=== PATIENT | male | born 1945 | race American Indian/Alaskan Native ===

== ENCOUNTER 2019-04-03 11:13 | Emergency (ER) | payer MEDICARE ==
[2019-04-03] MEDS ORDERED: BENTYL IM ONE (11:28)
[2019-04-03] MEDS ORDERED: ZOFRAN IV ONE (11:28)
[2019-04-03] MEDS ORDERED: NACL 0.9% 1000 ML 1,000 ML IV ONE (11:28)
[2019-04-03] MEDS ORDERED: TORADOL IV ONE (11:28)
--- NOTE | 2019-04-03 11:28 | Event Note ---
ED Screening Note Date of service: 04/03/19 Time: 11:24 ED Screening Note: Reports abdominal pain x 3 weeks with nausea and vomiting. Denies constipation. no rectal bleeding. no vomiting blood . denies alcohol use. denies fever or chills. Denies medical problems Abd:TTP soft. NL BS This initial assessment/diagnostic orders/clinical plan/treatment(s) is/are subject to change based on patients health status, clinical progression and re- assessment by fellow clinical providers in the ED. Further treatment and workup at subsequent clinical providers discretion. Patient/guardian urged not to elope from the ED as their condition may be serious if not clinically assessed and managed. Initial orders include: labs
[2019-04-03 12:14] LABS: Basophils # (Auto) 0.1 K/mm3 (0.0-0.1); Basophils % (Auto) 1.1 % (0.0-1.8); Eosinophils # (Auto) 0.1 K/mm3 (0.0-0.4); Eosinophils % (Auto) 0.8 % (0.0-4.3); Hematocrit 44.6 % (35.5-45.6); Hemoglobin 14.6 gm/dl (11.8-15.2); Lymphocytes # (Auto) 1.8 K/mm3 (1.2-5.4); Lymphocytes % (Auto) 16.6 % (13.4-35.0); Mean Corpuscular HGB Conc 33 % (32-34); Mean Corpuscular Volume 87 fl (84-94); Monocytes # (Auto) 0.6 K/mm3 (0.0-0.8); Monocytes % (Auto) 5.9 % (0.0-7.3); Platelet Count 309 K/mm3 (140-440); Red Blood Count 5.14 M/mm3 (3.65-5.03); Red Cell Distribution Width 14.5 % (13.2-15.2)
[2019-04-03 12:24] LABS: Bacteria,Urine 1+ /HPF (Negative); Bilirubin,Urine NEG (Negative); Blood,Urine NEG (Negative); Color,Urine Yellow (Yellow); Mucus,Urine 3+ /HPF; Protein,Urine <15 mg/dL mg/dL (Negative)
[2019-04-03 12:25] LABS: INR 1.11 (0.87-1.13)
[2019-04-03 12:33] LABS: Amphetamine Screen,Urine PRESUMPTIVE NEGATIVE; Benzodiazepines Screen,Urine PRESUMPTIVE NEGATIVE; Cannabinoid Screen,Urine PRESUMPTIVE NEGATIVE; Cocaine Screen,Urine PRESUMPTIVE NEGATIVE; Methadone Screen,Urine PRESUMPTIVE NEGATIVE; Opiate Screen,Urine PRESUMPTIVE NEGATIVE
[2019-04-03 12:42] LABS: Alanine Aminotransferase 8 units/L (7-56); Albumin 3.9 g/dL (3.9-5); BUN/Creatinine Ratio 18; Blood Urea Nitrogen 20 mg/dL (9-20); Calcium 9.1 mg/dL (8.4-10.2); Hemolysis Index 33
[2019-04-03 12:43] LABS: Bilirubin,Direct < 0.2 mg/dL (0-0.2)
--- NOTE | 2019-04-03 13:45 | Cat Scan Report ---
CT OF THE ABDOMEN AND PELVIS WITH INTRAVENOUS CONTRAST INDICATION / CLINICAL INFORMATION: Lower abdominal pain with nausea and vomiting for 3 days. TECHNIQUE: The patient received 100 cc Omnipaque [address] scans at this location are performed using CT dose reduction for ALARA by means of automated exposure control. COMPARISON: None available. FINDINGS: ABDOMEN: There are multiple simple cysts scattered throughout both lobes of the liver, the largest of which measures approximately 1.9 cm. There are multiple nonspecific low density lesions in the media l aspect of the spleen, the largest of which measures 1.2 cm. There are multiple small simple renal c ysts bilaterally. The gallbladder, bile ducts, pancreas and left adrenal gland are normal. There is a 1 cm benign-appearing right adrenal adenoma readopt There is mild diffuse gastric wall thickening with submucosal edema. I see no evidence of bowel dilat ation or free air. There are moderately severe atherosclerotic calcifications involving the abdominal aorta and its branches without aneurysm. There are advanced changes of emphysema in both lung bases. PELVIS: The distal ureters and urinary bladder are normal. The prostate gland and seminal vesicles ar e not identified. No abnormal mass or fluid collection is seen. No enlarged lymph nodes are identifie d A normal appendix is present and there is no evidence of diverticulitis. I do not identify a hernia . Mild spondylosis is present. There is no evidence of osseous metastatic disease. IMPRESSION: 1. Mild generalized gastric wall thickening/submucosal edema is characteristic of gastritis. 2. Multiple small nonspecific low density lesions in the spleen. Signer Name: Ronni Bernardo MD Signed: 04/03/2019 1:40 PM Workstation Name: [id number]
--- NOTE | 2019-04-03 13:55 | Emergency Department Report ---
ED N/V/D HPI - General Chief complaint: Abdominal Pain Stated complaint: ABD PAIN Time Seen by Provider: 04/03/19 11:22 Source: patient Mode of arrival: Ambulatory Limitations: No Limitations - History of Present Illness Initial comments: Patient is a 73-year-old male with a past medical history of hypertension and coronary disease who is presenting with 3 weeks of abdominal discomfort. Patient states initially was high in the epigastrium but has moved down slightly to be midway between the epigastrium and the umbilicus. Patient s tates pain is worse after he eats. He has been having multiple episodes of nausea and vomiting. Patient states he does not have a history of drinking. Patient denies fever chills cough cold or congestion. Patient states that he called his doctor and was advised to come to the emergency department to be evaluated. Patient states the pain is a cramping sensation is 910 in severity. Patient denies any hematuria or hematochezia. - Related Data Previous Rx's Medication Instructions Recorded Last Taken Type Dicyclomine [Bentyl] 20 mg PO QID #10 tablet 04/03/19 Unknown Rx Ondansetron [Zofran Odt] 4 mg PO Q8HR #20 tab.rapdis 04/03/19 Unknown Rx Pantoprazole [Protonix] 40 mg PO QDAY #30 tablet 04/03/19 Unknown Rx Sulfamethoxazole/Trimethoprim 1 each PO BID #14 tablet 04/03/19 Unknown Rx [Bactrim DS TAB] traMADol [Ultram] 50 mg PO Q6HR PRN #12 tablet 04/03/19 Unknown Rx Allergies Allergy/AdvReac Type Severity Reaction Status Date / Time No Known Allergies Allergy Unverified 04/03/19 11:18 ED Review of Systems ROS: Stated complaint: ABD PAIN Other details as noted in HPI Comment: All other systems reviewed and negative ED Past Medical Hx - Past Medical History Previous Medical History?: Yes Hx Hypertension: Yes Hx Heart Attack/AMI: Yes (stents) Additional medical history: PVD R/T [place], CAD - Surgical History Past Surgical History?: Yes Hx Coronary Stent: Yes - Social History Smoking Status: Current Every Day Smoker Substance Use Type: Prescribed - Medications Home Medications: Home Medications Medication Instructions Recorded Confirmed Last Taken Type Dicyclomine [Bentyl] 20 mg PO QID #10 tablet 04/03/19 Unknown Rx Ondansetron [Zofran Odt] 4 mg PO Q8HR #20 tab.rapdis 04/03/19 Unknown Rx Pantoprazole [Protonix] 40 mg PO QDAY #30 tablet 04/03/19 Unknown Rx Sulfamethoxazole/Trimethoprim 1 each PO BID #14 tablet 04/03/19 Unknown Rx [Bactrim DS TAB] traMADol [Ultram] 50 mg PO Q6HR PRN #12 tablet 04/03/19 Unknown Rx ED Physical Exam - General Limitations: No Limitations General appearance: alert, in no apparent distress - Head Head exam: Present: atraumatic, normocephalic - Eye Eye exam: Present: normal appearance, PERRL, EOMI - ENT ENT exam: Present: mucous membranes moist - Neck Neck exam: Present: normal inspection - Respiratory Respiratory exam: Present: normal lung sounds bilaterally. Absent: respiratory distress, wheezes, rales, rhonchi - Cardiovascular Cardiovascular Exam: Present: regular rate, normal rhythm, normal heart sounds. Absent: systolic murmur, diastolic murmur, rubs, gallop - GI/Abdominal GI/Abdominal exam: Present: soft, tenderness (mid abd ), normal bowel sounds. Absent: distended, guarding, rebound, rigid - Rectal Rectal exam: Present: deferred - Extremities Exam Extremities exam: Present: normal inspection - Back Exam Back exam: Present: normal inspection - Neurological Exam Neurological exam: Present: alert, oriented X3 - Psychiatric Psychiatric exam: Present: normal affect, normal mood - Skin Skin exam: Present: warm, dry, intact, normal color. Absent: rash ED Course Vital Signs 04/03/19 04/03/19 11:18 12:02 Temperature 98.2 F Pulse Rate 103 H Respiratory 18 18 Rate Blood Pressure 162/98 O2 Sat by Pulse 95 Oximetry ED Medical Decision Making - Lab Data Result diagrams: 04/03/19 11:56 04/03/19 11:56 Lab Results 04/03/19 04/03/19 04/03/19 Range/Units 11:37 11:37 11:56 WBC 11.0 (4.5-11.0) K/mm3 RBC 5.14 H (3.65-5.03) M/mm3 Hgb 14.6 (11.8-15.2) gm/dl Hct 44.6 (35.5-45.6) % MCV 87 (84-94) fl MCH 28 (28-32) pg MCHC 33 (32-34) % RDW 14.5 (13.2-15.2) % Plt Count 309 (140-440) K/mm3 Lymph % (Auto) 16.6 (13.4-35.0) % [place] % (Auto) 5.9 (0.0-7.3) % Eos % (Auto) 0.8 (0.0-4.3) % Baso % (Auto) 1.1 (0.0-1.8) % Lymph # 1.8 (1.2-5.4) K/mm3 [place] # 0.6 (0.0-0.8) K/mm3 Eos # 0.1 (0.0-0.4) K/mm3 Baso # 0.1 (0.0-0.1) K/mm3 Seg Neutrophils % 75.6 H (40.0-70.0) % Seg Neutrophils # 8.3 H (1.8-7.7) K/mm3 PT (12.2-14.9) Sec. INR (0.87-1.13) Sodium (137-145) mmol/L Potassium (3.6-5.0) mmol/L Chloride (98-107) mmol/L Carbon Dioxide (22-30) mmol/L Anion Gap mmol/L BUN (9-20) mg/dL Creatinine (0.8-1.5) mg/dL Estimated GFR ml/min BUN/Creatinine Ratio % Glucose (75-100) mg/dL Calcium (8.4-10.2) mg/dL Total Bilirubin (0.1-1.2) mg/dL Direct Bilirubin (0-0.2) mg/dL Indirect Bilirubin mg/dL AST (5-40) units/L ALT (7-56) units/L Alkaline Phosphatase (35-129) units/L Total Protein (6.3-8.2) g/dL Albumin (3.9-5) g/dL Albumin/Globulin Ratio % Lipase (13-60) units/L Urine Color Yellow (Yellow) Urine Turbidity Slightly-cloudy (Clear) Urine pH 5.0 (5.0-7.0) Ur Specific [place] 1.029 (1.003-1.030) Urine Protein <15 mg/dl (Negative) mg/dL Urine Glucose (UA) Neg (Negative) mg/dL Urine Ketones Neg (Negative) mg/dL Urine Blood Neg (Negative) Urine Nitrite Neg (Negative) Urine Bilirubin Neg (Negative) Urine Urobilinogen 2.0 (<2.0) mg/dL Ur Leukocyte Esterase Mod (Negative) Urine WBC (Auto) 14.0 H (0.0-6.0) /HPF Urine RBC (Auto) 2.0 (0.0-6.0) /HPF U Epithel Cells (Auto) 10.0 (0-13.0) /HPF Urine Bacteria (Auto) 1+ (Negative) /HPF Urine Mucus 3+ /HPF Urine Opiates Screen Presumptive negative Urine Methadone Screen Presumptive negative Ur Barbiturates Screen Presumptive negative Ur Phencyclidine Scrn Presumptive negative Ur Amphetamines Screen Presumptive negative U Benzodiazepines Scrn Presumptive negative Urine Cocaine Screen Presumptive negative U Marijuana (THC) Screen Presumptive negative Drugs of Abuse Note Disclamer Plasma/Serum Alcohol (0-0.07) % 04/03/19 04/03/19 04/03/19 Range/Units 11:56 11:56 11:56 WBC (4.5-11.0) K/mm3 RBC (3.65-5.03) M/mm3 Hgb (11.8-15.2) gm/dl Hct (35.5-45.6) % MCV (84-94) fl MCH (28-32) pg MCHC (32-34) % RDW (13.2-15.2) % Plt Count (140-440) K/mm3 Lymph % (Auto) (13.4-35.0) % [place] % (Auto) (0.0-7.3) % Eos % (Auto) (0.0-4.3) % Baso % (Auto) (0.0-1.8) % Lymph # (1.2-5.4) K/mm3 [place] # (0.0-0.8) K/mm3 Eos # (0.0-0.4) K/mm3 Baso # (0.0-0.1) K/mm3 Seg Neutrophils % (40.0-70.0) % Seg Neutrophils # (1.8-7.7) K/mm3 PT 14.2 (12.2-14.9) Sec. INR 1.11 (0.87-1.13) Sodium 143 (137-145) mmol/L Potassium 4.2 (3.6-5.0) mmol/L Chloride 102.4 (98-107) mmol/L Carbon Dioxide 24 (22-30) mmol/L Anion Gap 21 mmol/L BUN 20 (9-20) mg/dL Creatinine 1.1 (0.8-1.5) mg/dL Estimated GFR > 60 ml/min BUN/Creatinine Ratio 18 % Glucose 104 H (75-100) mg/dL Calcium 9.1 (8.4-10.2) mg/dL Total Bilirubin 0.60 (0.1-1.2) mg/dL Direct Bilirubin < 0.2 (0-0.2) mg/dL Indirect Bilirubin 0.4 mg/dL AST 13 (5-40) units/L ALT 8 (7-56) units/L Alkaline Phosphatase 113 (35-129) units/L Total Protein 6.7 (6.3-8.2) g/dL Albumin 3.9 (3.9-5) g/dL Albumin/Globulin Ratio 1.4 % Lipase 15 (13-60) units/L Urine Color (Yellow) Urine Turbidity (Clear) Urine pH (5.0-7.0) Ur Specific [place] (1.003-1.030) Urine Protein (Negative) mg/dL Urine Glucose (UA) (Negative) mg/dL Urine Ketones (Negative) mg/dL Urine Blood (Negative) Urine Nitrite (Negative) Urine Bilirubin (Negative) Urine Urobilinogen (<2.0) mg/dL Ur Leukocyte Esterase (Negative) Urine WBC (Auto) (0.0-6.0) /HPF Urine RBC (Auto) (0.0-6.0) /HPF U Epithel Cells (Auto) (0-13.0) /HPF Urine Bacteria (Auto) (Negative) /HPF Urine Mucus /HPF Urine Opiates Screen Urine Methadone Screen Ur Barbiturates Screen Ur Phencyclidine Scrn Ur Amphetamines Screen U Benzodiazepines Scrn Urine Cocaine Screen U Marijuana (THC) Screen Drugs of Abuse Note Plasma/Serum Alcohol (0-0.07) % 04/03/19 Range/Units 11:56 WBC (4.5-11.0) K/mm3 RBC (3.65-5.03) M/mm3 Hgb (11.8-15.2) gm/dl Hct (35.5-45.6) % MCV (84-94) fl MCH (28-32) pg MCHC (32-34) % RDW (13.2-15.2) % Plt Count (140-440) K/mm3 Lymph % (Auto) (13.4-35.0) % [place] % (Auto) (0.0-7.3) % Eos % (Auto) (0.0-4.3) % Baso % (Auto) (0.0-1.8) % Lymph # (1.2-5.4) K/mm3 [place] # (0.0-0.8) K/mm3 Eos # (0.0-0.4) K/mm3 Baso # (0.0-0.1) K/mm3 Seg Neutrophils % (40.0-70.0) % Seg Neutrophils # (1.8-7.7) K/mm3 PT (12.2-14.9) Sec. INR (0.87-1.13) Sodium (137-145) mmol/L Potassium (3.6-5.0) mmol/L Chloride (98-107) mmol/L Carbon Dioxide (22-30) mmol/L Anion Gap mmol/L BUN (9-20) mg/dL Creatinine (0.8-1.5) mg/dL Estimated GFR ml/min BUN/Creatinine Ratio % Glucose (75-100) mg/dL Calcium (8.4-10.2) mg/dL Total Bilirubin (0.1-1.2) mg/dL Direct Bilirubin (0-0.2) mg/dL Indirect Bilirubin mg/dL AST (5-40) units/L ALT (7-56) units/L Alkaline Phosphatase (35-129) units/L Total Protein (6.3-8.2) g/dL Albumin (3.9-5) g/dL Albumin/Globulin Ratio % Lipase (13-60) units/L Urine Color (Yellow) Urine Turbidity (Clear) Urine pH (5.0-7.0) Ur Specific [place] (1.003-1.030) Urine Protein (Negative) mg/dL Urine Glucose (UA) (Negative) mg/dL Urine Ketones (Negative) mg/dL Urine Blood (Negative) Urine Nitrite (Negative) Urine Bilirubin (Negative) Urine Urobilinogen (<2.0) mg/dL Ur Leukocyte Esterase (Negative) Urine WBC (Auto) (0.0-6.0) /HPF Urine RBC (Auto) (0.0-6.0) /HPF U Epithel Cells (Auto) (0-13.0) /HPF Urine Bacteria (Auto) (Negative) /HPF Urine Mucus /HPF Urine Opiates Screen Urine Methadone Screen Ur Barbiturates Screen Ur Phencyclidine Scrn Ur Amphetamines Screen U Benzodiazepines Scrn Urine Cocaine Screen U Marijuana (THC) Screen Drugs of Abuse Note Plasma/Serum Alcohol < 0.01 (0-0.07) % - Radiology Data [facility] [address] [place] [address] Cat Scan Report Signed Patient: Rocio DUDLEY MR#: [id number] : 1945 Acct:[id number] Age/Sex: 73 / M ADM Date: 04/03/19 Loc: ED Attending Dr: Ordering Physician: HAILEY CASTRO MD Date of Service: 04/03/19 Procedure(s): CT abdomen pelvis w con Accession Number(s): [id number] cc: HAILEY CASTRO MD CT OF THE ABDOMEN AND PELVIS WITH INTRAVENOUS CONTRAST INDICATION / CLINICAL INFORMATION: Lower abdominal pain with nausea and vomiting for 3 days. TECHNIQUE: The patient received 100 cc Omnipaque [address] scans at this location are performed using CT dose reduction for ALARA by means of automated exposure control. COMPARISON: None available. FINDINGS: ABDOMEN: There are multiple simple cysts scattered throughout both lobes of the liver, the largest of which measures approximately 1.9 cm. There are multiple nonspecific low density lesions in the medial aspect of the spleen, the largest of which measures 1.2 cm. There are multiple small simple renal cysts bilaterally. The gallbladder, bile ducts, pancreas and left adrenal gland are normal. There is a 1 cm benign-appearing right adrenal adenoma readopt There is mild diffuse gastric wall thickening with submucosal edema. I see no evidence of bowel dilatation or free air. There are moderately severe atherosclerotic calcifications involving the abdominal aorta and its branches without aneurysm. There are advanced changes of emphysema in both lung bases. PELVIS: The distal ureters and urinary bladder are normal. The prostate gland and seminal vesicles are not identified. No abnormal mass or fluid collection is seen. No enlarged lymph nodes are identified A normal appendix is present and there is no evidence of diverticulitis. I do not identify a hernia. Mild spondylosis is present. There is no evidence of osseous metastatic disease. IMPRESSION: 1. Mild generalized gastric wall thickening/submucosal edema is characteristic of gastritis. 2. Multiple small nonspecific low density lesions in the spleen. Signer Name: Ronni Bernardo MD Signed: 04/03/2019 1:40 PM Workstation Name: [id number] Transcribed By: RT Dictated By: Ronni Bernardo MD Electronically Authenticated By: Ronni Bernardo MD Signed Date/Time: 04/03/19 1340 - Medical Decision Making Patient was given IV hydration and medications for symptomatic relief and is feeling improved. Patient's CT is consistent with a gastritis which does correlate well with his complaints. Patient will be started on Protonix and given antiemetics will follow with GI. Patient states he has no dysuria or urinary frequency however the patient does have positive leuk esterase as well as bacteria in the urine. Patient be treated for cystitis/prostatitis. Patient be discharged home at this time. Critical care attestation.: If time is entered above; I have spent that time in minutes in the direct care of this critically ill patient, excluding procedure time. ED Disposition Clinical Impression: Pyuria Gastritis Qualifiers: Gastritis type: unspecified gastritis Chronicity: acute Gastritis bleeding: without bleeding Qualified Code(s): K29.00 - Acute gastritis without bleeding Disposition: DC-01 TO HOME OR SELFCARE Is pt being admited?: No Does the pt Need Aspirin: No Condition: Stable Instructions: Urinary Tract Infection in Men (ED), Gastritis (ED) Additional Instructions: Please follow up with the GI clinic at the DC or the GI doctor that has been given to you on your paperwork Referrals: [facility] [Other] - 3-5 Days [facility] [Provider Group] - 3-5 Days Time of Disposition: 14:02
[2019-04-03 14:10] VITALS: BP 131/80
== END 2019-04-03 14:12 | disposition home or self-care (01) ==
LOC: ED 11:13
DX: K29.70 Gastritis, unspecified, without bleeding (principal); R82.81 Pyuria; I10 Essential (primary) hypertension; I25.2 Old myocardial infarction; I25.10 Atherosclerotic heart disease of native coronary artery without angina pectoris; F17.200 Nicotine dependence, unspecified, uncomplicated; Z95.5 Presence of coronary angioplasty implant and graft; Z79.899 Other long term (current) drug therapy
CPT/HCPCS: 36415; 74177; 80048; 80076; 80307; 81001; 83690; 85025; 85610; 86850; 86900; 86901; 87086; 96361; 96372; 96374; 96375; 99284; J0500; J1885; J2405; J7030; Q9967; 80320; G0480

== ENCOUNTER 2020-06-27 10:35 | Emergency (ER) | payer MEDICARE ==
[2020-06-27] MEDS ORDERED: LIDOCAINE VISCOUS 2% 15 ML ORAL LIQD PO ONE (10:56)
[2020-06-27] MEDS ORDERED: ALUM-MAG HYDROXIDE-SIMETHICONE 200-200-20MG/5ML ORAL LIQD 30 ML PO ONE (10:57)
--- NOTE | 2020-06-27 11:01 | Emergency Department Report ---
HPI - General Chief Complaint: Abdominal Pain Time Seen by Provider: 06/27/20 10:50 - HPI HPI: This is a 74-year-old -Al[place]ian male who presents to the emergency department with a complaint of upper abdominal pain that has been going on intermittently for the past month. Patient denies any current chest pain but says that sometimes the pain will radiate into the lower mid chest. He denies any fever, back pain, nausea, vomiting, diarrhea, constipation, dysuria. The pain worsens when the patient eats any food. It improves immediately after drinking milk. No recent travel or sick contacts at home. The patient follows with the [facility] for primary care. He has a past medical history of hypertension, coronary artery disease with a cardiac stent, PVD, and previous exposure to agent orange. The patient is a tobacco smoker but denies any illicit drug use. ED Past Medical Hx - Past Medical History Previous Medical History?: Yes Hx Hypertension: Yes Hx Heart Attack/AMI: Yes (stents) Additional medical history: PVD R/T [place], CAD - Surgical History Past Surgical History?: Yes Hx Coronary Stent: Yes - Social History Smoking Status: Current Every Day Smoker Substance Use Type: Prescribed - Medications Home Medications: Home Medications Medication Instructions Recorded Confirmed Last Taken Type Dicyclomine [Bentyl] 20 mg PO QID #10 tablet 04/03/19 Unknown Rx Ondansetron [Zofran Odt] 4 mg PO Q8HR #20 tab.rapdis 04/03/19 Unknown Rx Sulfamethoxazole/Trimethoprim 1 each PO BID #14 tablet 04/03/19 Unknown Rx [Bactrim DS TAB] traMADoL [Ultram] 50 mg PO Q6HR PRN #12 tablet 04/03/19 Unknown Rx Pantoprazole [Protonix TAB] 40 mg PO QDAY #30 tablet 06/27/20 Unknown Rx ED Review of Systems ROS: Stated complaint: STOMACCH IRRITATION/DISCOMFORT Other details as noted in HPI Comment: All other systems reviewed and negative Constitutional: denies: chills, fever Eyes: denies: eye pain, vision change ENT: denies: ear pain, throat pain Respiratory: denies: cough, shortness of breath Cardiovascular: denies: palpitations, edema Gastrointestinal: abdominal pain. denies: nausea, vomiting, diarrhea, constipation Genitourinary: denies: dysuria, discharge Musculoskeletal: denies: back pain, arthralgia Skin: denies: rash, lesions Neurological: denies: headache, weakness Physical Exam - Physical Exam Vital Signs: Vital Signs 06/27/20 10:46 Temperature 97.9 F Pulse Rate 98 H Respiratory 18 Rate Blood Pressure 123/91 [Right] O2 Sat by Pulse 97 Oximetry Physical Exam: GENERAL: The patient is well-developed well-nourished. HENT: Normocephalic. Atraumatic. Patient has moist mucous membranes. EYES: Extraocular motions are intact. NECK: Supple. Trachea is midline. CHEST/LUNGS: Clear to auscultation. There is no respiratory distress noted. HEART/CARDIOVASCULAR: Regular. There is no tachycardia. There is no murmur. ABDOMEN: Abdomen is soft. Upper abdominal reproducible tenderness to palpation. No guarding. No rebound tenderness. Patient has normal bowel sounds. There is no abdominal distention. SKIN: Skin is warm and dry. NEURO: The patient is awake, alert, and oriented. The patient is cooperative. The patient has no focal neurologic deficits. Normal speech. MUSCULOSKELETAL: There is no tenderness or deformity. There is no limitation range of motion. ED Course Vital Signs 06/27/20 10:46 Temperature 97.9 F Pulse Rate 98 H Respiratory 18 Rate Blood Pressure 123/91 [Right] O2 Sat by Pulse 97 Oximetry ED Medical Decision Making - Lab Data Result diagrams: 06/27/20 11:36 06/27/20 11:36 Lab Results 06/27/20 06/27/20 Range/Units 11:36 11:36 WBC 8.7 (4.5-11.0) K/mm3 RBC 5.25 H (3.65-5.03) M/mm3 Hgb 15.3 H (11.8-15.2) gm/dl Hct 46.2 H (35.5-45.6) % MCV 88 (84-94) fl MCH 29 (28-32) pg MCHC 33 (32-34) % RDW 14.8 (13.2-15.2) % Plt Count 278 (140-440) K/mm3 Lymph % (Auto) 17.0 (13.4-35.0) % [place] % (Auto) 8.0 H (0.0-7.3) % Eos % (Auto) 2.4 (0.0-4.3) % Baso % (Auto) 0.3 (0.0-1.8) % Lymph # (Auto) 1.5 (1.2-5.4) K/mm3 [place] # (Auto) 0.7 (0.0-0.8) K/mm3 Eos # (Auto) 0.2 (0.0-0.4) K/mm3 Baso # (Auto) 0.0 (0.0-0.1) K/mm3 Seg Neutrophils % 72.3 H (40.0-70.0) % Seg Neutrophils # 6.3 (1.8-7.7) K/mm3 Sodium 141 (137-145) mmol/L Potassium 4.4 (3.6-5.0) mmol/L Chloride 103.8 (98-107) mmol/L Carbon Dioxide 31 H (22-30) mmol/L Anion Gap 11 mmol/L BUN 18 (9-20) mg/dL Creatinine 0.9 (0.8-1.3) mg/dL Estimated GFR > 60 ml/min BUN/Creatinine Ratio 20 % Glucose 103 H (75-100) mg/dL Calcium 9.0 (8.4-10.2) mg/dL Total Bilirubin 0.50 (0.1-1.2) mg/dL AST 12 (5-40) units/L ALT 7 (7-56) units/L Alkaline Phosphatase 95 (35-129) units/L Troponin T < 0.010 (0.00-0.029) ng/mL Total Protein 6.6 (6.3-8.2) g/dL Albumin 3.4 L (3.9-5) g/dL Albumin/Globulin Ratio 1.1 % Lipase 40 (13-60) units/L - EKG Data -: EKG Interpreted by Md EKG shows normal: sinus rhythm, axis (Left axis deviation), intervals, QRS complexes (Q waves to the inferior leads), ST-T waves (Nonspecific T waves to the lateral leads) Rate: normal - EKG Data When compared to previous EKG there are: previous EKG unavailable Interpretation: other (Sinus rhythm at 80 bpm, left axis deviation, Q waves to the inferior leads, nonspecific T waves to the lateral leads. No ST elevation NM.) - Medical Decision Making This patient presents to the emergency department with complaint of a month-long history of intermittent upper abdominal pain. It mostly occurs, or worsens, after eating food. Improves after drinking milk. The patient was seen here a little over 1 year ago with similar symptoms and was found to have gastritis at that time. The symptoms do appear consistent with gastritis and GERD. On examination the patient's abdomen is soft, nondistended and nontoxic in appearance. There is some mild reproducible pain to the epigastric and left upper quadrant abdominal regions. An acute abdominal series was done that does not show any acute process. There is nonspecific nonobstructive bowel gas. Labs have been unremarkable including CBC, lipase, and metabolic panel. The patient was given a GI cocktail with lidocaine and Maalox. Upon reevaluation he is feeling improved. His vital signs have been reassuring throughout his ED course including being afebrile. For all these reasons the patient appears safe for discharge home at this time. We discussed smoking cessation. We discussed foods and drinks to avoid as not to exacerbate the GERD and gastritis. He will be placed on a PPI. He will return to the emergency department with any worsening of his symptoms or with any acute distress. Critical Care Time: No Critical care attestation.: If time is entered above; I have spent that time in minutes in the direct care of this critically ill patient, excluding procedure time. ED Disposition Clinical Impression: GERD (gastroesophageal reflux disease) Qualifiers: Esophagitis presence: without esophagitis Qualified Code(s): K21.9 - Gastro- esophageal reflux disease without esophagitis Gastritis Qualifiers: Gastritis type: unspecified gastritis Chronicity: unspecified Gastritis bleeding: without bleeding Qualified Code(s): K29.70 - Gastritis, unspecified, without bleeding Disposition: TO HOME OR SELFCARE Is pt being admited?: No Condition: Stable Instructions: Gastritis, Adult, Food Choices for Gastroesophageal Reflux Disease, Adult, Gastroesophageal Reflux Disease, Adult Additional Instructions: Please follow-up with your primary care physician in the next few days. Please try and quit smoking. Try to stay away from foods that are acidic, tomato-based, and avoid alcohol consumption. Return to the emergency department with any worsening of your symptoms, new or concerning symptoms not addressed during this current emergency department vis it, or with any acute distress. Prescriptions: Pantoprazole [Protonix TAB] 40 mg PO QDAY #30 tablet Referrals: PRIMARY CARE, [Primary Care Provider] - 2-3 Days Time of Disposition: 12:25
[2020-06-27 11:57] LABS: Basophils % (Auto) 0.3 % (0.0-1.8); Eosinophils # (Auto) 0.2 K/mm3 (0.0-0.4); Eosinophils % (Auto) 2.4 % (0.0-4.3); Hematocrit 46.2 % (35.5-45.6); Hemoglobin 15.3 gm/dl (11.8-15.2); Lymphocytes # (Auto) 1.5 K/mm3 (1.2-5.4); Mean Corpuscular HGB Conc 33 % (32-34); Mean Corpuscular Volume 88 fl (84-94); Monocytes # (Auto) 0.7 K/mm3 (0.0-0.8); Platelet Count 278 K/mm3 (140-440); Red Blood Count 5.25 M/mm3 (3.65-5.03); Red Cell Distribution Width 14.8 % (13.2-15.2)
--- NOTE | 2020-06-27 12:03 | XRay Report ---
CHEST AND ABDOMINAL SERIES HISTORY: Abdominal pain. Chest one view: Heart size is normal. The lungs are clear. Two-view abdomen: Gas is scattered throughout the abdomen in a nonobstructive fashion. Negative for f ree air, significant constipation or suspicious calcification. Signer Name: Luke Mayers MD Signed: 06/27/2020 11:58 AM Workstation Name: General Specific
[2020-06-27 12:19] LABS: Alanine Aminotransferase 7 units/L (7-56); Albumin 3.4 g/dL (3.9-5); BUN/Creatinine Ratio 20; Blood Urea Nitrogen 18 mg/dL (9-20); Hemolysis Index 16
[2020-06-27 12:20] VITALS: BP 113/72
== END 2020-06-27 12:37 | disposition home or self-care (01) ==
LOC: ED 10:35
DX: K21.9 Gastro-esophageal reflux disease without esophagitis (principal); K29.70 Gastritis, unspecified, without bleeding; F17.200 Nicotine dependence, unspecified, uncomplicated; I10 Essential (primary) hypertension; I25.2 Old myocardial infarction; I25.10 Atherosclerotic heart disease of native coronary artery without angina pectoris; Z95.5 Presence of coronary angioplasty implant and graft; Z79.899 Other long term (current) drug therapy
CPT/HCPCS: 36415; 74022; 80053; 83690; 84484; 85025; 93005

== ENCOUNTER 2020-10-10 13:11 | Emergency (ER) | payer MEDICARE ==
[2020-10-10 13:18] VITALS: BP 150/92
--- NOTE | 2020-10-10 14:14 | Vascular Lab Report ---
DUPLEX DOPPLER LOWER EXTREMITY VEINS, RIGHT INDICATION: Right calf pain. TECHNIQUE: Duplex doppler imaging was performed through the veins of the right lower extremity using venous compression and other maneuvers. COMPARISON: No relevant prior imaging study available. FINDINGS: Right Common femoral vein: Negative. Right Superficial femoral vein: Negative. Right Popliteal vein: Negative. Right Calf veins: Negative. Additional findings: None. IMPRESSION: No sonographic evidence for DVT in the right lower extremity. Signer Name: Brodie Kaminski Jr, MD Signed: 10/10/2020 2:10 PM Workstation Name: [id number]
--- NOTE | 2020-10-10 14:41 | Emergency Department Report ---
ED Extremity Problem HPI - General Chief complaint: Extremity Problem,Nontraumatic Stated complaint: RIGHT CALF PAIN Time Seen by Provider: 10/10/20 13:39 Source: patient Mode of arrival: Ambulatory Limitations: No Limitations - History of Present Illness Initial comments: 75-year-old male with a past medical history of coronary artery disease status post stent placement, hypertension, hyperlipidemia, and tobacco use presents to the ER today with complaints of pain to his right calf area. Patient states that 3 weeks ago he started noticing significant right calf pain especially after walking 20 to 30 yards. Patient states that the pain does stop when he rests. He reports associated numbness to his toes and lower leg with the pain. He denies any injury to his right lower leg. He denies any redness or bruising or any significant swelling. He denies any chest pain or shortness of breath. He denies any known history of peripheral vascular disease. He denies similar symptoms in the past. MD Complaint: extremity pain -: Gradual, week(s) (3) Location: right, lower extremity - Related Data Previous Rx's Medication Instructions Recorded Last Taken Type Dicyclomine [Bentyl] 20 mg PO QID #10 tablet 04/03/19 Unknown Rx Ondansetron [Zofran Odt] 4 mg PO Q8HR #20 tab.rapdis 04/03/19 Unknown Rx cilostazoL [Pletal] 100 mg PO BID #30 tablet 10/10/20 Unknown Rx Allergies Allergy/AdvReac Type Severity Reaction Status Date / Time No Known Allergies Allergy Verified 10/10/20 13:18 ED Review of Systems ROS: Stated complaint: RIGHT CALF PAIN Other details as noted in HPI Comment: All other systems reviewed and negative Constitutional: denies: chills, fever Eyes: denies: eye pain, eye discharge, vision change ENT: denies: as per HPI, throat pain, dental pain, hearing loss, epistaxis, congestion Respiratory: denies: cough, shortness of breath, SOB with exertion, SOB at rest, wheezing Cardiovascular: denies: chest pain, palpitations, dyspnea on exertion, edema, syncope, paroxysmal nocturnal dyspnea Endocrine: no symptoms reported Gastrointestinal: denies: abdominal pain, nausea, diarrhea, constipation, hematemesis, melena, hematochezia Genitourinary: denies: urgency, dysuria Musculoskeletal: arthralgia, myalgia. denies: back pain, joint swelling Skin: denies: rash, lesions, change in color, change in hair/nails, pruritus Neurological: numbness. denies: headache, weakness, paresthesias, confusion, abnormal gait Psychiatric: denies: anxiety, depression, auditory hallucinations, visual hallucinations, homicidal thoughts, suicidal thoughts Hematological/Lymphatic: denies: easy bleeding, easy bruising ED Past Medical Hx - Past Medical History Hx Hypertension: Yes Hx Heart Attack/AMI: Yes (stents) Additional medical history: PVD R/T [place], CAD - Surgical History Hx Coronary Stent: Yes - Social History Smoking Status: Current Every Day Smoker Substance Use Type: None - Medications Home Medications: Home Medications Medication Instructions Recorded Confirmed Last Taken Type Dicyclomine [Bentyl] 20 mg PO QID #10 tablet 04/03/19 Unknown Rx Ondansetron [Zofran Odt] 4 mg PO Q8HR #20 tab.rapdis 04/03/19 Unknown Rx cilostazoL [Pletal] 100 mg PO BID #30 tablet 10/10/20 Unknown Rx ED Physical Exam - General Limitations: No Limitations General appearance: alert, in no apparent distress - Head Head exam: Present: atraumatic, normocephalic, normal inspection - Eye Eye exam: Present: normal appearance, PERRL, EOMI Pupils: Present: normal accommodation - Neck Neck exam: Present: full ROM - Respiratory Respiratory exam: Present: normal lung sounds bilaterally. Absent: respiratory distress, wheezes, rales - Cardiovascular Cardiovascular Exam: Present: regular rate, normal rhythm, normal heart sounds - GI/Abdominal GI/Abdominal exam: Present: soft. Absent: distended, tenderness, guarding, rebound - Extremities Exam Extremities exam: Present: other (faint dorsalis and posterior tibialis pulses noted bilaterally; the right foot is slighlty cooler and slight decrease in color compared to left. ) - Expanded Lower Extremity Exam Right Knee exam: Present: normal inspection, full ROM. Absent: tenderness, swelling Lower Leg exam: Present: normal inspection, full ROM, tenderness (Right calf). Absent: swelling, abrasion, laceration, ecchymosis, deformity, crepidus, dislocation, erythema, palpable cord, Lenora's sign Ankle exam: Present: normal inspection, full ROM. Absent: tenderness, swelling Foot/Toe exam: Present: normal inspection, full ROM. Absent: tenderness, swelling Neuro vascular tendon exam: Absent: motor deficit, sensory deficit Gait: Positive: observed and normal - Neurological Exam Neurological exam: Present: alert, oriented X3, CN II-XII intact, normal gait - Psychiatric Psychiatric exam: Present: normal affect, normal mood ED Course Vital Signs 10/10/20 13:16 Temperature 98.5 F Pulse Rate 82 Respiratory 20 Rate Blood Pressure 150/92 O2 Sat by Pulse 97 Oximetry ED Medical Decision Making - Radiology Data Radiology results: report reviewed Patient: ANDRAE DUDLEY MR#: [id number] : 1945 Acct:[id number] Age/Sex: 75 / M ADM Date: 10/10/20 Loc: ED Attending Dr: Ordering Physician: ANGELITO ROBERTSON MD Date of Service: 10/10/20 Procedure(s): VL arterial duplex LE BILAT Accession Number(s): [id number] cc: ANGELITO ROBERTSON MD DUPLEX DOPPLER LOWER EXTREMITY ARTERIAL, BILATERAL INDICATION: claudication. TECHNIQUE: Arterial duplex examination of both lower extremities performed using B-mode, c olor flow and spectral Doppler assessment. FINDINGS: RIGHT: Common Femoral Artery: PSV 85 cm/sec. Triphasic waveform. Proximal SFA: PSV 109 cm/sec. Biphasic waveform. Mid SFA: PSV 21 cm/sec. Biphasic waveform. Distal SFA: PSV 20 cm/sec. Monophasic waveform. Popliteal artery: PSV 7 cm/sec. Monophasic waveform. Posterior tibial artery: PSV 11 cm/sec. Monophasic waveform. Dorsalis Pedis Artery: PSV 6 cm/sec. Monophasic waveform. LEFT: Common Femoral Artery: PSV 67 cm/sec. Biphasic waveform. Proximal SFA: PSV 0 cm/sec. No waveform. Mid SFA: PSV 0 cm/sec. No waveform. Distal SFA: PSV 22 cm/sec. Monophasic waveform. Popliteal artery: PSV 17 cm/sec. Monophasic waveform. Posterior tibial artery: PSV 35 cm/sec. Monophasic waveform. Dorsalis Pedis Artery: PSV 10 cm/sec. Monophasic waveform. IMPRESSION: 1. Grossly abnormal exam with lack of blood flow seen in the left proximal and mid SFA, multifocal atherosclerotic disease, and several levels of abnormal monophasic waveforms consistent with upstream stenoses. IMPORTANT FINDING: Time of Communication (TOOL GRINDING MACHINE OPERATOR/CDT): 3:17 PM Licensed Practitioner Receiving Report: Dr. Gipson Doppler Waveform: * Triphasic is normal. * Biphasic is abnormal if clear transition from triphasic signal along vascular tree. * Monophasic is abnormal. Signer Name: Maged Cool MD Signed: 10/10/2020 4:18 PM Workstation Name: [id number] Transcribed By: JW Dictated By: Maged Cool MD Electronically Authenticated By: Maged Cool MD Signed Date/Time: 10/10/20 1618 DD/ 11 TD/TT: Patient: ANDRAE DUDLEY MR#: [id number] : 1945 Acct:[id number] Age/Sex: 75 / M A DM Date: 10/10/20 Loc: ED Attending Dr: Ordering Physician: SHADY BYNUM Date of Service: 10/10/20 Procedure(s): VL venous duplex LE RT Accession Number(s): [id number] cc: SHADY BYNUM DUPLEX DOPPLER LOWER EXTREMITY VEINS, RIGHT INDICATION: Right calf pain. TECHNIQUE: Duplex doppler imaging was performed through the veins of the right lower extremity using venous compression and other maneuvers. COMPARISON: No relevant prior imaging study available. FINDINGS: Right Common femoral vein: Negative. Right Superficial femoral vein: Negative. Right Popliteal vein: Negative. Right Calf veins: Negative. Additional findings: None. IMPRESSION: No sonographic evidence for DVT in the right lower extremity. Signer Name: Brodie Kaminski Jr, MD Signed: 10/10/2020 2:10 PM Workstation Name: [id number] Transcribed By: TTR Dictated By: BRODIE KAMINSKI JR, MD Electronically Authenticated By: BRODIE KAMINSKI JR, MD Signed Date/Time: 10/10/20 1410 DD/ 1409 TD/TT: - Medical Decision Making 75-year-old male with a past medical history of coronary artery disease status post stent placement, hypertension, hyperlipidemia, and tobacco use presents to the ER today with complaints of pain to his right calf area. Patient states that 3 weeks ago he started noticing significant right calf pain especially after walking 20 to 30 yards. Patient states that the pain does stop when he rests. He reports associated numbness to his toes and lower leg with the pain. He denies any injury to his right lower leg. He denies any redness or bruising or any significant swelling. He denies any chest pain or shortness of breath. He denies any known history of peripheral vascular disease. He denies similar symptoms in the past. On PE he does have faint but palpable dorsalis pedis and posterior tibialis pulses on both legs, and no significant skin discoloration or temperature change to both legs. He does not have pain at rest and he has good sensation and strength to both legs and is ambulatory in ED Venous doppler of RLE was negative for DVT. Arterial doppler bilateral LE show: IMPRESSION: 1. Grossly abnormal exam with lack of blood flow seen in the left proximal and mid SFA, multifocal atherosclerotic disease, and several levels of abnormal monophasic waveforms consistent with upstream stenoses. Asked patient if he was having any pain in left leg, and he stated no, it was mainly right leg. Discussed case with Dr Robertson, he was notified of US results by radiologist and he recommend discussing case with vascular surgeon 1641: Discussed case with Dr Mendez, Vascular surgeon -- since patient is not having any pain at rest, and his sensation and motor is intact, patient can follow up on an outpatient basis in their office and he also recommend starting patient on pletal 100 BID as long as he has no hx of CHF and is not on viagra. US show worse disease on left leg compared to right and he thinks patient could be having psuedo-claudication in right leg which is not usual. Discussed US results and concerning diagnosis with patient and daughter (via phone). Patient and daughter both deny hx of CHF and pt denies taking viagra. Informed them that patient will be prescribed pletal. Patient states he is currently on either blood thinners on and take platelet medication given his heart disease but is not sure what the name of the medication. The daughter is not sure of the name of the medication either. Recommend that he continue taking it every day. Also inform both of the patient and daughter the importance that patient follows up with the vascular surgeon which will be listed on his discharge instructions and try to get an appointment this week or early next week. Discussed worsening signs and symptoms with patient and daughter and to return to the ER immediately if the signs and symptoms develop. They both expressed understanding of instructions and agree with plan. Patient was stable at time of discharge. Critical care attestation.: If time is entered above; I have spent that time in minutes in the direct care of this critically ill patient, excluding procedure time. ED Disposition Clinical Impression: Claudication Disposition: DC- TO HOME OR SELFCARE Is pt being admited?: No Does the pt Need Aspirin: No Condition: Stable Instructions: Intermittent Claudication, Peripheral Vascular Disease, Easy-to- Read Additional Instructions: Continue taking your regular dose of anticoagulant or antiplatelet that you have a home. Take the pletal as prescribed, but you can stop it if you develop diarrhea or headache. Follow up with the vascular surgeon listed on your discharge instructions ([facility] vascular [place] [phone]) this week. Return to ED if your symptoms worsens or changes. Prescriptions: cilostazoL [Pletal] 100 mg PO BID #30 tablet Referrals: ESTELLA TREJO MD [Staff Physician] - 3-5 Days Time of Disposition: 16:49
--- NOTE | 2020-10-10 16:22 | Event Note ---
Date of service: 10/10/20 Face to Face: For this encounter I have reviewed the PA/PLUMBING ENGINEERING DRAFTSPERSON documentation, treatment plan, medical decision making, and I had face to face time with this patient. Patient complains of nontraumatic right lower extremity pain with ambulation for 3 weeks. Pulses were appreciated by the physician physician assistant surgery. His DVT study is negative, and arterial duplex study suggests vascular insufficiency. The case was discussed with vascular surgeon, Dr. Prabhakar, who recommended pletal, if no contraindication Arterial duplex study is reviewed and appreciated, patient standing up in no acute distress. He expressed concern given current insurance status with the [facility], and therefore, case management consultation was obtained, to assist the patient with this area of concern. Patient is awake, alert, oriented, in no acute distress, this is likely a subacute condition, and does not require emergent intervention at this time, the patient is suitable to follow-up as an outpatient. DUPLEX DOPPLER LOWER EXTREMITY ARTERIAL, BILATERAL INDICATION: claudication. TECHNIQUE: Arterial duplex examination of both lower extremities performed using B-mode, color flow and spectral Doppler assessment. FINDINGS: RIGHT: Common Femoral Artery: PSV 85 cm/sec. Triphasic waveform. Proximal SFA: PSV 109 cm/sec. Biphasic waveform. Mid SFA: PSV 21 cm/sec. Biphasic waveform. Distal SFA: PSV 20 cm/sec. Monophasic waveform. Popliteal artery: PSV 7 cm/sec. Monophasic waveform. Posterior tibial artery: PSV 11 cm/sec. Monophasic waveform. Dorsalis Pedis Artery: PSV 6 cm/sec. Monophasic waveform. LEFT: Common Femoral Artery: PSV 67 cm/sec. Biphasic waveform. Proximal SFA: PSV 0 cm/sec. No waveform. Mid SFA: PSV 0 cm/sec. No waveform. Distal SFA: PSV 22 cm/sec. Monophasic waveform. Popliteal artery: PSV 17 cm/sec. Monophasic waveform. Posterior tibial artery: PSV 35 cm/sec. Monophasic waveform. Dorsalis Pedis Artery: PSV 10 cm/sec. Monophasic waveform. IMPRESSION: 1. Grossly abnormal exam with lack of blood flow seen in the left proximal and mid SFA, multifocal atherosclerotic disease, and several levels of abnormal monophasic waveforms consistent with upstream stenoses. IMPORTANT FINDING: Time of Communication (ZIG ZAG STITCHER/CDT): 3:17 PM Licensed Practitioner Receiving Report: Dr. Gipson Doppler Waveform: * Triphasic is normal. * Biphasic is abnormal if clear transition from triphasic signal along vascular tree. * Monophasic is abnormal. Signer Name: Maged Cool MD Signed: 10/10/2020 3:18 PM Workstation Name: [id number]
== END 2020-10-10 17:07 | disposition home or self-care (01) ==
LOC: ED 13:11
DX: I73.9 Peripheral vascular disease, unspecified (principal); I10 Essential (primary) hypertension; I25.2 Old myocardial infarction; F17.200 Nicotine dependence, unspecified, uncomplicated; Z79.899 Other long term (current) drug therapy
CPT/HCPCS: 93925; 99283